=== PATIENT | male | born 1945 | race Hispanic/Latino ===

== ENCOUNTER 2017-11-05 20:12 | Emergency (ER) | payer BC, MEDICARE ==
[2017-11-05 20:13] VITALS: BMI 27.2
--- NOTE | 2017-11-05 20:48 | C.PDOC ---
History Of Present Illness 72 y/o M BIB[facility]S escorted by [facility] p/w listerine ingestion. According to EMS, patient was discovered to be drinking listerine by who called 911. Patient was not cooperative so [facility] had to escort patient. He stated that he only had a small bottle of listerine and one yesterday as well. Upon walking into the room today, the patient is lying in the stretcher wearing his fleece and no pants or underwear, genitals exposed. When asked for his name, he says, "Don't ask me my name. If you don't know my name, you're not doing your job." When asked how he came to the hospital, he states that his should have made his other family come because they are an opiate addict and he saved their life yesterday by driving 5 hours to and from [place]. When asked to expound on this, he states, "I don't have to tell you anything else. 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 Time Seen by Provider: 11/05/17 20:35 Chief Complaint (Nursing): Substance Abuse Past Medical History Vital Signs: Last Vital Signs Temp 97.5 F L 11/05/17 20:19 Pulse 74 11/05/17 22:53 Resp 18 11/05/17 22:53 BP 143/76 11/05/17 22:53 Pulse Ox 95 11/05/17 22:53 - Medical History PMH: Anxiety, Depression, HTN, Hypercholesterolemia Denies: Diabetes, Hepatitis, HIV, Chronic Kidney Disease, Seizures (Patient doesn't remember if he suffered from seizures), Sexually Transmitted Disease Surgical History: Pacemaker - [facility] ALCOHOL DETOXIFICATION (01/20/14) DETOXIFICATION SERVICES FOR SUBSTANCE ABUSE TREATMENT (06/17/17) INTRODUCTION OF SERUM/TOX/VACCINE INTO MUSCLE, PERC APPROACH (06/17/17) Family History: States: Unknown Family Hx - Social History Hx Tobacco Use: Yes Hx Alcohol Use: Yes Hx Substance Use: Yes - Immunization History Hx Tetanus Toxoid Vaccination: No Hx Influenza Vaccination: No Hx Pneumococcal Vaccination: No Review Of Systems Review Of Systems: ROS cannot be obtained secondary to pt's inabilty to answer questions. Physical Exam - Physical Exam Additional Physical Exam Comments: Gen: NAD Head: Atraumatic Eyes: No scleral icterus ENT: MMM CV: Regular rate Resp: No accessory muscle use Neuro: Alert ED Course And Treatment - Laboratory Results Result Diagrams: 11/05/17 20:50 11/06/17 00:56 O2 Sat by Pulse Oximetry: 93 Medical Decision Making Medical Decision Making: Poison control contacted, recommending acetaminophen and salicylate levels and supportive care. Labs ordered. Poison control recontacted with results, advise pH, IVF, and repeat acetaminophen level in 4 hours. EKG NSR 70 bpm, no ST elevations. Narrow QRS, normal intervals. Poison control recontacted, agrees with management and states safe for discharge. Patient observed in ED for over 6 hours. At time of discharge, awake , alert, steady gait. Advised to abstain from mouthwash ingestion as could potentially be fatal. Disposition - Disposition Disposition: HOME/ ROUTINE Disposition Time: 01:35 Condition: STABLE Additional Instructions: Please do not ingest mouthwash like Listerine. It has contents other than alcohol that could cause in overdose. Forms: [facility] ([place]) - Clinical Impression Clinical Impression: Adverse effect of mouthwash
[2017-11-05 21:02] LABS: BASO # 0.1 K/uL (0.0-0.2); BASO % 0.8 % (0.0-2.0); EOS # 0.1 K/uL (0.0-0.7); EOS % 1.9 % (0.0-4.0); LYMPH # 1.5 K/uL (1.0-4.3); LYMPH % 19.3 % (20.0-40.0); MEAN CELL VOLUME 96.4 fL (80.0-94.0); MEAN CORPUSCULAR HEMOGLOBIN 32.8 pg (27.0-31.0); MEAN PLATELET VOLUME 7.7 fL (7.2-11.7); MONO # 0.6 K/uL (0.0-0.8); NEUT # 5.3 K/uL (1.8-7.0); RBC 4.74 Mil/uL (4.40-5.90); RED CELL DISTRIBUTION WIDTH 13.7 % (11.5-14.5); WHITE BLOOD COUNT 7.6 K/uL (4.8-10.8)
[2017-11-05 21:07] LABS: HEMOGLOBIN 15.5 g/dL (12.0-18.0)
[2017-11-05 21:17] LABS: ACETAMINOPHEN < 10.0 ug/mL (10.0-30.0); SALICYLATE 1.4 mg/dL 1
[2017-11-05 21:19] LABS: ALB/GLOB RATIO 1.2 (1.0-2.1); ALBUMIN 4.2 g/dL (3.5-5.0); ALT/SGPT 34 U/L (21-72); AST/SGOT 44 U/L (17-59); BLOOD UREA NITROGEN 18 mg/dL (9-20); CALCIUM 8.5 mg/dl (8.6-10.4); GFR AFRICAN-AMERICAN > 60; GFR NON-AFRICAN AMERICAN > 60
[2017-11-05] MEDS ORDERED: Sodium Chloride 0.9% 1,000 ML IV STA (21:37)
[2017-11-05 22:21] LABS: VENOUS BLOOD GAS BASE EXCESS -1.1 mmol/L (0.0-2.0); VENOUS BLOOD GAS PCO2 42 mmHg (40-60); VENOUS BLOOD GAS PO2 35 mm/Hg (30-55); VENOUS BLOOD PH 7.37 (7.32-7.43)
[2017-11-05] MEDS ORDERED: DiphenhydrAMINE 50 mg/ml Inj IVP STA (22:33)
[2017-11-05] MEDS ORDERED: DiphenhydrAMINE 50 mg/ml Inj ONE (22:40)
[2017-11-05 22:58] LABS: BARBITURATES, UR NEGATIVE (NEGATIVE); BENZODIAZEPINES, UR POSITIVE (NEGATIVE); OPIATES, UR NEGATIVE (NEGATIVE); PHENCYCLIDINE, UR NEGATIVE (NEGATIVE)
[2017-11-05] MEDS ORDERED: Multivitamin (MVI) 10 ML, Thiamine 100 MG, Folic Acid 1 MG in Sodium Chloride 0.9% 1,00... IV ONE (23:57)
[2017-11-06] MEDS ORDERED: Multivitamin (MVI) 10 ML, Folic Acid 1 MG in Sodium Chloride 0.9% 1,000 ML IV ONE (01:00)
[2017-11-06 01:12] LABS: ALB/GLOB RATIO 1.3 (1.0-2.1); ALBUMIN 3.6 g/dL (3.5-5.0); ALT/SGPT 33 U/L (21-72); AST/SGOT 37 U/L (17-59); BLOOD UREA NITROGEN 18 mg/dL (9-20); CALCIUM 7.9 mg/dl (8.6-10.4); GFR AFRICAN-AMERICAN > 60; GFR NON-AFRICAN AMERICAN > 60
[2017-11-06 06:28] VITALS: BP 153/81; PULSE 76; RESP 18; TEMP 98.5; O2SAT 96
--- NOTE | 2017-11-06 11:55 | CARD ---
APPROVED REPORT EKG Measurement Heart [id number] <Conclusion> Normal sinus rhythm Left axis deviation Nonspecific T wave abnormality Abnormal ECG
== END 2017-11-06 06:32 | disposition home or self-care (01) ==
LOC: C.ER 20:12
DX: T49.6X1A Poisoning by otorhinolaryngological drugs and preparations, accidental (unintentional), initial encounter (principal)
CPT/HCPCS: 80053; 82803; 85025; 93005; 96365; 96375; 99285; G0480; J1200; J7040